=== PATIENT | male | born 2000 | race Caucasian/White ===

== ENCOUNTER 2022-12-08 16:22 | Emergency (ER) | payer SELFPAY ==
[~2022-12-08] VITALS: Ht 182.9 cm; Wt 100.0 kg
[2022-12-08] MEDS ORDERED: AMOXICILLIN 8751 TAB PO (19:09)
[2022-12-08 19:20] VITALS: BP 145/82; PULSE 79; TEMP 98.5
== END 2022-12-08 19:20 | disposition home or self-care (01) ==
LOC: COL.ER 16:22
DX: L05.91 Pilonidal cyst without abscess (principal); Z88.2 Allergy status to sulfonamides; Z28.310 Unvaccinated for COVID-19